=== PATIENT | female | born 1955 | race Caucasian/White ===

== ENCOUNTER 2019-09-05 23:23 | Emergency (ER) | payer SELFPAY ==
[~2019-09-05] VITALS: Ht 165.1 cm; Wt 80.0 kg
[2019-09-06] MEDS ORDERED: HYDROCODONE/ACETAMINOPHEN 5/325MG TABLET PO ONE (00:30)
[2019-09-06] MEDS ORDERED: IBUPROFEN 600MG TABLET PO ONE (04:30)
[2019-09-06 05:10] VITALS: BP 111/67
== END 2019-09-06 05:12 | disposition home or self-care (01) ==
LOC: ER 23:23
DX: S00.01XA Abrasion of scalp, initial encounter (principal); M54.9 Dorsalgia, unspecified; E11.9 Type 2 diabetes mellitus without complications; I10 Essential (primary) hypertension; W01.0XXA Fall on same level from slipping, tripping and stumbling without subsequent striking against object, initial encounter; Y93.41 Activity, dancing; Y92.89 Other specified places as the place of occurrence of the external cause; Y99.8 Other external cause status
CPT/HCPCS: 82962; 99284